=== PATIENT | male | born 1950 | race Caucasian/White ===

== ENCOUNTER 2020-04-25 15:55 | Outpatient (CLI) | payer MEDICARE ==
[2020-04-25 18:46] LABS: Hemoglobin 14.6 g/dL (13.5-17.5); Mean Corpuscular HGB CONC 33.5 g/dL (32.0-36.0); Mean Corpuscular Hemoglobin 31.7 pg (27.0-33.0); Mean Corpuscular Volume 94.6 fl (81.2-95.1); Mean Platelet Volume 10.8 fl (7.4-10.4); Platelet Count 185 10x3/uL (150-450); RBC Distribution Width 12.3 % (11.5-14.5); Red Blood Cell (RBC) Count 4.61 10x6/uL (4.32-5.72); White Blood Cell (WBC) Count 5.8 10x3/uL (3.5-10.5)
[2020-04-25 18:55] LABS: Anion Gap 10 mmol/L (10-20); BUN (Urea Nitrogen) 18 mg/dL (8.4-25.7); Calc. Creatinine Clearance 0 mL/min (70-130); Calcium 9.3 mg/dL (7.8-10.44); Carbon Dioxide 28 mmol/L (23-31); Chloride 107 mmol/L (98-107); Glucose 82 mg/dL (80-115); Potassium 4.3 mmol/L (3.5-5.1); Sodium 141 mmol/L (136-145)
[2020-04-25 18:59] LABS: PTT 25.1 sec (22.0-33.0); Prothrombin Time 10.8 sec (9.5-12.1)
[2020-04-25 19:04] LABS: Bilirubin Neg (Negative); Blood, Urine Negative (Negative); Clarity Clear (Clear); Glucose, Urine (Dipstick) Normal (Negative); Ketone, Urine Negative (Negative); Leukocyte Negative (Negative); Nitrite Negative (Negative); Protein, Urine (Dipstick) Negative (Neg-Trace); Urobilinogen Normal mg/dL (Less than 2)
[2020-04-25 20:53] LABS: Bacteria/HPF None Seen HPF (None Seen); RBC/HPF None Seen HPF (0-3); Squamous Epithelial None Seen HPF (0-3); WBC/HPF None Seen HPF (0-3)
[2020-04-26 03:55] LABS: SARS-CoV-2 PCR by NAA Not Detected (NotDetected)
== END 2020-04-25 15:56 | disposition home or self-care (01) ==
LOC: LABBT 15:55
PROVIDERS: ATTEND Urology
DX: Z01.818 Encounter for other preprocedural examination (principal); Z12.5 Encounter for screening for malignant neoplasm of prostate; N40.1 Benign prostatic hyperplasia with lower urinary tract symptoms; R35.0 Frequency of micturition; R33.9 Retention of urine, unspecified; Z80.42 Family history of malignant neoplasm of prostate; Z20.822 Contact with and (suspected) exposure to COVID-19
CPT/HCPCS: 80048; 81001; 85027; 85610; 85730; 87086; U0003; U0005; 87635; 93005; 93010

== ENCOUNTER 2020-04-30 06:05 | Day surgery (SDC) | payer MEDICARE ==
[2020-04-29 10:42] VITALS: BMI 24.3
[2020-04-30] MEDS ORDERED: Levofloxacin 500 mg/D5W 100 ml Premix Bag ONE (06:38)
[2020-04-30] MEDS ORDERED: Lidocaine 1% PF 5 ML VIAL ONE (07:31)
[2020-04-30] MEDS ORDERED: HYDROcodone/Acetaminophen 5/325 mg Tablet ONE (08:28)
[2020-04-30] MEDS ORDERED: Phenazopyridine HCl 100 MG TAB ONE (08:28)
[2020-04-30] MEDS ORDERED: Morphine 2 MG/ML VIAL ONE (09:34)
[2020-04-30] MEDS ORDERED: Tamsulosin HCl 0.4 MG CAP ONE (10:37)
== END 2020-04-30 12:30 | disposition home or self-care (01) ==
LOC: SDC 06:05
PROVIDERS: ATTEND Urology
PROC: 0T7D8DZ Dilation of Urethra with Intraluminal Device, Via Natural or Artificial Opening Endoscopic (ICD-10-PCS; principal; 2020-04-30)
DX: N40.1 Benign prostatic hyperplasia with lower urinary tract symptoms (principal); R35.0 Frequency of micturition; R39.14 Feeling of incomplete bladder emptying; G47.30 Sleep apnea, unspecified; I34.1 Nonrheumatic mitral (valve) prolapse; Z79.899 Other long term (current) drug therapy
CPT/HCPCS: C9740; J2270; L8699; J1956

== ENCOUNTER 2022-01-27 11:03 | Outpatient (CLI) | payer MEDICARE ==
[2022-01-27 13:00] LABS: Bilirubin Neg (Negative); Blood, Urine Negative (Negative); Clarity Clear (Clear); Glucose, Urine (Dipstick) Normal (Negative); Ketone, Urine Negative (Negative); Leukocyte Negative (Negative); Nitrite Negative (Negative); Protein, Urine (Dipstick) Negative (Neg-Trace); Specific Gravity, Urine 1.015 (1.005-1.030); Urobilinogen Normal mg/dL (Less than 2); pH, Urine 6.5 (5.0-9.0)
[2022-01-27 13:03] LABS: Hemoglobin 15.6 g/dL (13.5-17.5); Mean Corpuscular HGB CONC 33.8 g/dL (32.0-36.0); Mean Corpuscular Hemoglobin 32.2 pg (27.0-33.0); Mean Corpuscular Volume 95.1 fl (81.2-95.1); Mean Platelet Volume 10.6 fl (7.4-10.4); Platelet Count 207 10x3/uL (150-450); RBC Distribution Width 12.1 % (11.5-14.5); Red Blood Cell (RBC) Count 4.85 10x6/uL (4.32-5.72); White Blood Cell (WBC) Count 5.8 10x3/uL (3.5-10.5)
[2022-01-27 13:07] LABS: Bacteria/HPF None Seen HPF (None Seen); RBC/HPF 0-3 HPF (0-3); Squamous Epithelial 0-3 HPF (0-3); WBC/HPF 0-3 HPF (0-3)
[2022-01-27 13:18] LABS: Prothrombin Time 10.4 sec (9.5-12.1)
[2022-01-27 13:20] LABS: Anion Gap 14 mmol/L (10-20); BUN (Urea Nitrogen) 17 mg/dL (8.4-25.7); Calc. Creatinine Clearance 0 mL/min (70-130); Calcium 9.6 mg/dL (7.8-10.44); Carbon Dioxide 28 mmol/L (23-31); Chloride 102 mmol/L (98-107); Estimated GFR 83; Glucose 94 mg/dL (80-115); Potassium 4.6 mmol/L (3.5-5.1); Sodium 139 mmol/L (136-145)
== END 2022-01-27 11:04 | disposition home or self-care (01) ==
LOC: LABBT 11:03
PROVIDERS: ATTEND Urology
DX: Z01.818 Encounter for other preprocedural examination (principal); Z12.5 Encounter for screening for malignant neoplasm of prostate; N40.1 Benign prostatic hyperplasia with lower urinary tract symptoms; R35.0 Frequency of micturition; R33.9 Retention of urine, unspecified; R01.1 Cardiac murmur, unspecified; Z80.42 Family history of malignant neoplasm of prostate
CPT/HCPCS: 80048; 81001; 85027; 85610; 85730; 87086; 93005; 93010

== ENCOUNTER 2022-02-10 06:02 | Observation (INO) | payer MEDICARE ==
[2022-02-09 10:20] VITALS: BMI 25.5
[2022-02-10] MEDS ORDERED: Levofloxacin 500 mg/D5W 100 ml Premix Bag ONE (07:19)
[2022-02-10] MEDS ORDERED: Fentanyl 100 MCG/2 ML VIAL ONE (07:21)
[2022-02-10] MEDS ORDERED: Glycopyrrolate 0.2 MG/ML 5 ML SYRINGE ONE (07:26)
[2022-02-10] MEDS ORDERED: Rocuronium Bromide 10 MG/ML (10ML VIAL) ONE (07:26)
[2022-02-10] MEDS ORDERED: Dexamethasone 20 MG/5 ML VIAL ONE (07:26)
[2022-02-10] MEDS ORDERED: ePHEDrine 50 MG/ML VIAL ONE (07:26)
[2022-02-10] MEDS ORDERED: PROPOFOL 200 MG/20 ML VIAL ONE (07:26)
[2022-02-10] MEDS ORDERED: NEOSTIGMINE 3 MG/3 ML SYR 3 MG/3 ML SYRINGE ONE (07:26)
[2022-02-10] MEDS ORDERED: Ondansetron PF 4 MG/2 ML Vial ONE (07:26)
[2022-02-10] MEDS ORDERED: Lidocaine 1% PF 5 ML VIAL ONE (07:26)
[2022-02-10] MEDS ORDERED: Acetaminophen 500 MG TAB PO PRN (09:41)
[2022-02-10] MEDS ORDERED: hydrALAZINE 20 MG/ML VIAL SLOW IVP PRN (09:41)
[2022-02-10] MEDS ORDERED: Zolpidem Tartrate 5 MG TAB PO PRN (09:41)
[2022-02-10] MEDS ORDERED: Morphine 4 MG/ML VIAL SLOW IVP PRN ×2 (09:41)
[2022-02-10] MEDS ORDERED: diphenhydrAMINE 50 MG/ML VIAL IVP PRN (09:41)
[2022-02-10] MEDS ORDERED: HYDROcodone/Acetaminophen 5/325 mg Tablet PO PRN ×2 (09:41)
[2022-02-10] MEDS ORDERED: Hyoscyamine Sulfate SL 0.125 mg Tablet ONE (10:01)
[2022-02-10 10:31] LABS: #Lymphocytes 0.7 thou/uL (1.20-3.40); #Monocytes 0.2 thou/uL (0.11-0.59); #Neutrophils 7.6 thou/uL (1.40-6.50); %Eosinophils 0.2 % (0.0-10.0); %Monocytes 2.3 % (0.0-10.0); %Neutrophils 89.5 % (42.0-75.0); Hemoglobin 14.6 g/dL (14.0-18.0); Mean Corpuscular HGB CONC 33.6 g/dL (32.0-36.0); Mean Corpuscular Volume 98.3 fl (78.0-98.0); Platelet Count 178 10x3/uL (130-400); RBC Distribution Width 11.3 % (11.5-14.5); Red Blood Cell (RBC) Count 4.43 mill/uL (4.70-6.10); White Blood Cell (WBC) Count 8.5 10x3/uL (4.8-10.8)
[2022-02-10] MEDS ORDERED: Phenazopyridine HCl 100 MG TAB PO PRN (10:48)
[2022-02-10] MEDS ORDERED: Loratadine 10 MG TAB PO PRN (10:53)
[2022-02-10 10:54] LABS: Anion Gap 10 mmol/L (10-20); BUN (Urea Nitrogen) 13 mg/dL (8.4-25.7); Calc. Creatinine Clearance 102 mL/min (70-130); Calcium 8.5 mg/dL (7.8-10.44); Carbon Dioxide 24 mmol/L (23-31); Chloride 107 mmol/L (98-107); Estimated GFR 97; Glucose 115 mg/dL (80-115); Potassium 4.1 mmol/L (3.5-5.1); Sodium 137 mmol/L (136-145)
[2022-02-10] MEDS ORDERED: Chloraseptic Spray 180 ml Bottle PO PRN (16:28)
[2022-02-10] MEDS: Hyoscyamine Sulfate SL 0.125 mg Tablet SL SCH ×2 (18:14→21:34)
[2022-02-10] MEDS: Sodium Chloride 0.9% 1,000 ML IV SCH ×2 (18:15→18:16)
[2022-02-10] MEDS ORDERED: Latanoprost 0.005% Ophth Soln 2.5 ml Bottle EA EYE SCH (21:00)
[2022-02-10] MEDS ORDERED: Famotidine/PF 20 mg/2ml Vial SLOW IVP SCH (21:00)
[2022-02-10] MEDS: Calcium Carbonate 600 MG + Vit D TAB PO SCH (21:34)
[2022-02-10] MEDS: Docusate 100 MG CAP PO SCH (21:34)
[2022-02-11 00:25] LABS: SARS-CoV-2 NAA Rapid Test Not Detected (NotDetected)
[2022-02-11] MEDS: Sodium Chloride 0.9% 1,000 ML IV SCH (01:56)
[2022-02-11] MEDS: Hyoscyamine Sulfate SL 0.125 mg Tablet SL SCH ×2 (04:43→09:39)
[2022-02-11] MEDS ORDERED: cefTRIAXone\\ROCEPHIN 1 GM in Sodium Chloride 0.9% 100 ML IVPB SCH (06:00)
[2022-02-11 06:22] LABS: #Lymphocytes 0.9 thou/uL (1.20-3.40); #Monocytes 0.7 thou/uL (0.11-0.59); #Neutrophils 8.8 thou/uL (1.40-6.50); %Basophils 0.1 % (0.0-1.0); %Eosinophils 0.1 % (0.0-10.0); %Lymphocytes 8.4 % (21.0-51.0); %Monocytes 7.1 % (0.0-10.0); %Neutrophils 84.3 % (42.0-75.0); Hemoglobin 14.1 g/dL (14.0-18.0); Mean Corpuscular HGB CONC 33.6 g/dL (32.0-36.0); Mean Corpuscular Hemoglobin 33.6 pg (27.0-31.0); Mean Platelet Volume 8.5 fL (7.4-10.4); Platelet Count 185 10x3/uL (130-400); RBC Distribution Width 11.5 % (11.5-14.5); White Blood Cell (WBC) Count 10.4 10x3/uL (4.8-10.8)
[2022-02-11 06:42] LABS: Anion Gap 10 mmol/L (10-20); BUN (Urea Nitrogen) 12 mg/dL (8.4-25.7); Calc. Creatinine Clearance 93 mL/min (70-130); Calcium 8.3 mg/dL (7.8-10.44); Carbon Dioxide 25 mmol/L (23-31); Chloride 108 mmol/L (98-107); Estimated GFR 94; Glucose 107 mg/dL (80-115); Potassium 4.1 mmol/L (3.5-5.1); Sodium 139 mmol/L (136-145)
[2022-02-11 08:18] VITALS: BP 136/77; TEMP 97.8
[2022-02-11] MEDS ORDERED: PSYLLIUM HUSK 0.4 GM PO SCH (09:00)
[2022-02-11] MEDS ORDERED: Magnesium Oxide 400 MG TAB PO SCH (09:00)
[2022-02-11] MEDS: Calcium Carbonate 600 MG + Vit D TAB PO SCH (09:39)
[2022-02-11] MEDS: Docusate 100 MG CAP PO SCH (09:40)
== END 2022-02-11 10:29 | disposition home or self-care (01) ==
LOC: SDC 06:02 → SURG A 17:53
PROVIDERS: ADMIT Urology; ATTEND Urology
PROC: 0V507ZZ Destruction of Prostate, Via Natural or Artificial Opening (ICD-10-PCS; principal; 2022-02-10)
DX: N40.1 Benign prostatic hyperplasia with lower urinary tract symptoms (principal); R33.8 Other retention of urine; R39.14 Feeling of incomplete bladder emptying; R35.0 Frequency of micturition; R01.1 Cardiac murmur, unspecified; Z80.42 Family history of malignant neoplasm of prostate; Z79.899 Other long term (current) drug therapy; Z20.822 Contact with and (suspected) exposure to COVID-19
CPT/HCPCS: 52601; 80048 ×2; 85025 ×2; 86850; 86900; 86901; U0002; 36415; 88305; J0696; J1100; J1956; J2405; J2704; J3010; J3490; J7050; S0028

== ENCOUNTER 2022-03-26 08:19 | Outpatient (CLI) | payer MEDICARE ==
[2022-03-26] MEDS ORDERED: Iopamidol 370 76% 100 ML VIAL ONE (13:44)
== END 2022-03-26 08:20 | disposition home or self-care (01) ==
LOC: CT 08:19
PROVIDERS: ATTEND Internal Medicine Cardiovascular Disease
DX: I71.21 Aneurysm of the ascending aorta, without rupture (principal); K46.9 Unspecified abdominal hernia without obstruction or gangrene; N28.1 Cyst of kidney, acquired
CPT/HCPCS: 71275; Q9967

== ENCOUNTER 2023-11-10 12:51 | Outpatient (CLI) | payer MEDICARE ==
[~2023-11-10 12:51] MED LIST: Iopamidol 370 76% 100 ML VIAL ONE
== END 2023-11-10 12:52 | disposition home or self-care (01) ==
LOC: CT 12:51
PROVIDERS: ATTEND Internal Medicine Cardiovascular Disease
DX: I71.21 Aneurysm of the ascending aorta, without rupture (principal); J47.9 Bronchiectasis, uncomplicated; J98.4 Other disorders of lung
CPT/HCPCS: 36415; 71275; 82565; Q9967